=== PATIENT | female | born 2005 | race Caucasian/White ===

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

== ENCOUNTER → 2023-10-18 13:20 | Outpatient (BNVA) | payer MEDICAID, SELFPAY | PROVIDERS: Family Provider Nurse Practitioner Family; PCP Nurse Practitioner Family; Visit Provider Nurse Practitioner Women's Health | DX: N92.6 Irregular menstruation, unspecified (principal); Z34.90 Encounter for supervision of normal pregnancy, unspecified, unspecified trimester | CPT/HCPCS: 81025; 84702; 86850; 86900 ==

== ENCOUNTER → 2023-11-06 12:02 | Outpatient (BNVA) | payer MEDICAID, SELFPAY | PROVIDERS: Family Provider Nurse Practitioner Family; PCP Nurse Practitioner Family; Visit Provider Nurse Practitioner Women's Health | DX: Z36.87 Encounter for antenatal screening for uncertain dates (principal) | CPT/HCPCS: 76801 ==

== ENCOUNTER → 2023-11-13 07:58 | Outpatient (BNVA) | payer MEDICAID, SELFPAY | PROVIDERS: Family Provider Nurse Practitioner Family; PCP Nurse Practitioner Family; Visit Provider Nurse Practitioner Women's Health | DX: Z34.90 Encounter for supervision of normal pregnancy, unspecified, unspecified trimester | CPT/HCPCS: 84315; 87086 ==

== ENCOUNTER → 2023-11-20 08:01 | Outpatient (BNVA) | payer MEDICAID, SELFPAY | PROVIDERS: Family Provider Nurse Practitioner Family; PCP Nurse Practitioner Family; Visit Provider Nurse Practitioner Women's Health | DX: Z34.90 Encounter for supervision of normal pregnancy, unspecified, unspecified trimester (principal) | CPT/HCPCS: 85025; 86592; 86762; 86803; 87340; 87806 ==

== ENCOUNTER → 2023-12-09 07:56 | Outpatient (BNVA) | payer MEDICAID, SELFPAY | PROVIDERS: Family Provider Nurse Practitioner Family; PCP Nurse Practitioner Family; Visit Provider Obstetrics & Gynecology | DX: Z34.01 Encounter for supervision of normal first pregnancy, first trimester (principal) | CPT/HCPCS: 84315; 87491; 87591 ==

== ENCOUNTER → 2023-12-31 07:47 | Outpatient (BNVA) | payer BC, MEDICAID, SELFPAY | PROVIDERS: Family Provider Nurse Practitioner Family; PCP Nurse Practitioner Family; Visit Provider Nurse Practitioner Women's Health | DX: Z34.90 Encounter for supervision of normal pregnancy, unspecified, unspecified trimester | CPT/HCPCS: 82105; 84315 ==

== ENCOUNTER → 2024-01-27 14:42 | Outpatient (BNVA) | payer BC, MEDICAID, SELFPAY | PROVIDERS: Family Provider Nurse Practitioner Family; PCP Nurse Practitioner Family; Visit Provider Obstetrics & Gynecology | DX: Z36.2 Encounter for other antenatal screening follow-up (principal); Z3A.20 20 weeks gestation of pregnancy | CPT/HCPCS: 76805 ==

== ENCOUNTER → 2024-02-24 15:35 | Outpatient (BNVA) | payer BC, MEDICAID, SELFPAY | PROVIDERS: Family Provider Nurse Practitioner Family; PCP Nurse Practitioner Family; Visit Provider Obstetrics & Gynecology | DX: Z36.2 Encounter for other antenatal screening follow-up (principal); Z3A.24 24 weeks gestation of pregnancy | CPT/HCPCS: 76816 ==

== ENCOUNTER → 2024-02-28 07:54 | Outpatient (BNVA) | payer BC, MEDICAID, SELFPAY | PROVIDERS: Family Provider Nurse Practitioner Family; PCP Nurse Practitioner Family; Visit Provider Nurse Practitioner Women's Health | DX: O98.812 Other maternal infectious and parasitic diseases complicating pregnancy, second trimester (principal); A74.9 Chlamydial infection, unspecified | CPT/HCPCS: 82950; 84315; 87491; 87591 ==

== ENCOUNTER → 2024-03-25 13:12 | Outpatient (BNVA) | payer BC, MEDICAID, SELFPAY | PROVIDERS: Family Provider Nurse Practitioner Family; PCP Nurse Practitioner Family; Visit Provider Nurse Practitioner Women's Health | DX: Z34.90 Encounter for supervision of normal pregnancy, unspecified, unspecified trimester (principal); Z34.02 Encounter for supervision of normal first pregnancy, second trimester | CPT/HCPCS: 84315; 85025 ==

== ENCOUNTER 2024-04-16 11:26 | Outpatient (CLI) | payer BC, MEDICAID, SELFPAY ==
[2024-04-16] VITALS (8 sets, daily range): BP systolic 98–109; BP diastolic 54–72; PULSE 61–83; O2SAT 98; BMI 24.2
== END 2024-04-16 13:05 | disposition home or self-care (01) ==
LOC: OPOB 11:27 → OBGYN 11:28
PROVIDERS: Family Provider Nurse Practitioner Family; PCP Nurse Practitioner Family; Visit Provider Obstetrics & Gynecology
DX: O36.8190 Decreased fetal movements, unspecified trimester, not applicable or unspecified (principal); Z3A.00 Weeks of gestation of pregnancy not specified
CPT/HCPCS: 59025; 99211

== ENCOUNTER 2024-05-18 15:35 | Outpatient (CLI) | payer BC, MEDICAID, SELFPAY ==
[2024-05-18 15:35] VITALS: BMI 25.2
[2024-05-18 15:51] VITALS: BP 119/70; PULSE 70
[2024-05-18 16:11] VITALS: BP 109/65; PULSE 72
[2024-05-18 16:32] VITALS: BP 114/70; PULSE 75
== END 2024-05-18 16:55 | disposition home or self-care (01) ==
LOC: OPOB 15:40 → OBGYN 15:41
PROVIDERS: Absent Provider Obstetrics & Gynecology; Family Provider Nurse Practitioner Family; PCP Nurse Practitioner Family; Visit Provider Obstetrics & Gynecology
DX: O26.899 Other specified pregnancy related conditions, unspecified trimester (principal); Z3A.00 Weeks of gestation of pregnancy not specified
CPT/HCPCS: 59025; 84315; 87081; 99211

== ENCOUNTER 2024-05-27 01:01 | Inpatient (IN) | payer BC, MEDICAID, SELFPAY ==
[2024-05-26 23:57] VITALS: BMI 25.9
[2024-05-27] VITALS (86 sets, daily range): BP systolic 92–137; BP diastolic 50–95; PULSE 55–123; RESP 14–16; TEMP 36.2–36.8; O2SAT 92–100
[2024-05-27 01:14] LABS: Basophils % 0.2 %; Eosinophils % 0.2 %; Hematocrit 41.7 % (36-47); Lymphocytes # 2.4 10^3/uL (1.5-6.5); Lymphocytes % 18.1 %; Mean Corpuscular HGB Conc 33.6 g/dL (30-55); Mean Corpuscular Hemoglobin 29.9 pg (27-33); Mean Corpuscular Volume 88.9 fl (85-98); Mean Platelet Volume 10.3 fL (7.4-10.4); Monocytes # 0.9 10^3/uL (0.2-0.9); Monocytes % 7.2 %; Neutrophils # 9.55 10^3/uL (1.8-8.0); Neutrophils % 73.8 %; Nucleated Red Blood Cells % 0 %; Platelet Count 304 10^3/cmm (157-399); Red Blood Count 4.69 10^6/uL (3.85-5.65); Red Cell Distribution Width 13.3 % (12.1-15.1); White Blood Count 12.97 10^3/uL (4.5-13.0)
--- NOTE | 2024-05-27 01:45 | PM.OBGYHP ---
Providers/Chief Complaint Admitting Physician: Caleb Norman MD Primary ATHLETIC TURF WORKER: Max Rouse MD Primary Care Provider: PAWAN Roman Chief Complaint: bleeding, back pain, possible contractions HPI ATHLETIC TURF WORKER History of Present Illness Manish Hummel is a 18 year old female G1 EDC June 12, 2024 At 37 w 5 d No complications Presented c/o painful uterine contractions No bleeding or fluid leakage + active movements Present Details : 1 Para: 0 Labs Rubella: Immune RPR: Negative GBS: Negative Medications/Allergies Home Medications Medication Instructions Recorded Confirmed Last Taken Type vitamin 1 tab PO DAILY 05/27/24 05/27/24 1 Day Ago History no.76-iron,carbonyl 29 mg ~05/26/24 iron-folic acid 1 mg tablet Allergies Allergy/AdvReac Type Severity Reaction Status Date / Time No Known Allergies Allergy Verified 05/27/24 02:17 PFSH ATHLETIC TURF WORKER PFSH: Medical History No pertinent past medical history neghx: htn,dm,thyroid,dvt/pe PCP: None Surgical History No pertinent past surgical history Family History Grandmother Diabetes Stroke Thyroid disease Mother Hypertension Denies family history of Colon cancer Ovarian cancer Prostate cancer Heart disease Hyperlipidemia Breast cancer Uterine cancer Social History Smoking and tobacco/nicotine status: former use of tobacco/nicotine History History History 1 Term 0 Miscarriages/Ectopic Living Children Care ISREAL Calculator Estimated Delivery Date Method Current WG Current Estimate 06/12/24 Ultrasound #1 37w 6d Other Estimates 05/31/24 LMP (Certain) 39w 4d Specific Issues/Plans SMOKER -- quit smoking CHLAMYDIA- second trimester; treated; chelsea 24 wks Vitals/I&O/Wt Last Vital Signs Temp 97.6 F 05/28/24 00:00 Pulse 79 05/28/24 00:00 Resp 14 05/28/24 00:00 BP 104/65 05/28/24 00:00 Pulse Ox 96 05/28/24 00:00 O2 Del Method Room Air 05/28/24 00:00 05/27/24 05/27/24 05/28/24 14:59 22:59 06:59 Intake Total 1100 / 1100 212.917 / 1312.917 Balance 1100 / 1100 212.917 / 1312.917 Weight last 48 hrs Weight 142 lb Physical Exam Narrative: Weight 142 lbs; 5?2? VS normal General in moderate discomfort from uterine contractions Awake, alert Lungs: clear Cor: RRR Fundal height 36 cm Cervix 4 cm / 75 / -2 / cephalic Ext: no edema External monitor: regular uterine contractions heart tracing good variability, + accelerations Urinary Catheter Management: Barrett: Cath Placed During This Visit: yes, but has since been removed by the nurse Reason for Continuing Indwelling Catheter: Other Urinary Catheter Date of Insertion: 05/27/24 Urinary Catheter Time of Insertion: 06:10 Date Urinary Catheter Removed: 05/27/24 Time Urinary Catheter Discontinued: 13:56 Data 05/28/24 03:00 Results Labs OB ([facility]): Obstetrics US 02/24/24 Blood Type O Positive 05/27/24 Antibody Screen Negative 05/27/24 Hct 31.1 % (36-47) L 05/28/24 Hgb 10.50 g/dL (12.4-14.8) L 05/28/24 Rho(D) Type Rh positive 05/27/24 Plt Count 217 10^3/cmm (157-399) 05/28/24 Hep Bs Antigen Non-reactive (Nonreactive) 11/20/23 Hepatitis C Antibody Non-reactive (Nonreactive) 11/20/23 Rubella IgG Antibody 71.9 IU/mL (0.0-10.0) H 11/20/23 RPR Nonreactive (Nonreactive) 11/20/23 HIV 1&2 Ab & HIV 1 Ag Non-reactive (Non-Reactiv) 11/20/23 C.trachomatis RNA (TMA) Not detected (NOT DETECTED) 02/28/24 N.gonorrhoeae RNA (TMA) Not detected (NOT DETECTED) 02/28/24 T. vaginalis Amp RNA Not detected (NOT DETECTED) 02/28/24 Chlamydia/GC Comment See note 02/28/24 Cystic Fibrosis Screen Negative 12/09/23 Glucose 1 Hr 50 gm 95 mg/dL (85-140) 02/28/24 Ser , Semi-Qnt 29659.00 mIU/mL 10/18/23 HCG, Qual Positive (Negative) H 10/18/23 Urine Opiates Screen Negative ng/mL (Negative) 05/27/24 Ur Barbiturates Screen Negative ng/mL (Negative) 05/27/24 Ur Phencyclidine Scrn Negative ng/mL (Negative) 05/27/24 Ur Amphetamines Screen Negative ng/mL (Negative) 05/27/24 U Benzodiazepines Scrn Negative ng/mL (Negative) 05/27/24 Urine Cocaine Screen Negative ng/mL (Negative) 05/27/24 U Marijuana (THC) Screen Negative ng/mL (Negative) 05/27/24 Micro Urine Specimen 11/13/23 A&P Assessment and plan (1) Supervision of normal first : 37 w 5 d Fetus reassuring Active labor Admit Expectant management Qualifiers: Trimester: second trimester Qualified Code(s): Z34.02 - Encounter for supervision of normal first , second trimester Attestations Medical Necessity Statement*: patient at 37 w 5 d, in active labor Coding Level of Care Code Acute Code for Chg Fwd Diagnoses Encounter for supervision of normal first in second trimester Z34.02 Trimester: second trimester Time Spent (min) 60
[2024-05-27 02:23] LABS: Amphetamines Screen Urine Negative (Negative); Barbiturates Screen Urine Negative (Negative); Benzodiazepines Screen Urine Negative (Negative); Cocaine Screen Urine Negative (Negative); Opiate Screen Urine Negative (Negative); PCP Screen Urine Negative (Negative); THC Screen Urine Negative (Negative)
--- NOTE | 2024-05-27 02:50 | PM.OBGYPN ---
MEDICAL TECHNICIAN ASSISTANT Subjective Subjective: Interval history: DELIVERY NOTE , vigorous Normal placenta and cord Cord blood obtained Second-degree perineal laceration repaired EBL: 300 cc No complications Labor: Station: -1 Amniotic Membrane Status: Bulging Monitor Mode: External Contraction Pattern: Irregular Vitals/I&O/Wt Last Vital Signs Temp 97.6 F 05/28/24 00:00 Pulse 79 05/28/24 00:00 Resp 14 05/28/24 00:00 BP 104/65 05/28/24 00:00 Pulse Ox 96 05/28/24 00:00 O2 Del Method Room Air 05/28/24 00:00 05/27/24 05/28/24 05/28/24 22:59 06:59 14:59 Intake Total 212.917 / 1312.917 Balance 212.917 / 1312.917 Weight last 48 hrs Weight 142 lb Physical Exam Urinary Catheter Management: Barrett: Cath Placed During This Visit: yes, but has since been removed by the nurse Reason for Continuing Indwelling Catheter: Other Urinary Catheter Date of Insertion: 05/27/24 Urinary Catheter Time of Insertion: 06:10 Date Urinary Catheter Removed: 05/27/24 Time Urinary Catheter Discontinued: 13:56 Data 05/28/24 03:00 A&P Assessment and plan (1) Vaginal delivery: Attestations Medical Necessity Statement*: patient s/p vaginal delivery Coding Level of Care Code Acute Code for Chg Fwd Diagnoses Vaginal delivery O80 Time Spent (min) 60
[2024-05-27] MEDS: lactated ringers 1,000 ML 999 ML IV ×2 (04:00→04:56)
[2024-05-27] MEDS: fentaNYL 50 mcg/mL INJ 2mL IVP (04:11)
[2024-05-27] MEDS: ROPivacaine syringe 100 MG/50 ML SYRINGE 10 MG EPIDURAL ×3 (05:18→14:32)
--- NOTE | 2024-05-27 05:23 | P.ANESASSM_ITS ---
Pre-Anesthetic Assessment Height/Weight: Height 1.57 m Weight 64.41 kg Temp Pulse Resp BP Pulse Ox O2 Del Method 97.2 F L 65 16 115/56 100 Room Air 05/27/24 01:14 05/27/24 05:21 05/27/24 04:11 05/27/24 05:19 05/27/24 05:21 05/27/24 01:11 Epidural Familial anesthetic complications: None Was Beta Rosa M taken within 24 hours: N/A Was Clonidine taken within 24 hours: N/A Last intake: 1900 solids Social No alcohol and No tobacco Exam alert, oriented x 3, clear to auscultation bilaterally and regular rate & rhythm Airway Submandibular: within normal limits Cervical ROM: within normal limits Mallampati: Class II Dentition: full History/ROS No significant history except as noted and No significant complaints Pulmonary None reported CV/HEM None reported None reported Hepatic None reported GI None reported Metabolic None reported Musc/skel None reported Neuropsych None reported Anesthetic Plan ASA status: 2 Anesthesia: Anesthesia Evaluation, General and Regional (specify below) (Epidural) Medications/Allergies Home Medications Medication Instructions Recorded Confirmed Last Taken Type vitamin 1 tab PO DAILY 05/27/24 05/27/24 1 Day Ago History no.76-iron,carbonyl 29 mg ~05/26/24 iron-folic acid 1 mg tablet Allergies Allergy/AdvReac Type Severity Reaction Status Date / Time No Known Allergies Allergy Verified 05/27/24 02:17 Current Medications Generic Name Dose Route Start Last Admin Trade Name Freq PRN Reason Stop Dose Admin Fentanyl 25 - 100 mcg 05/27/24 01:09 05/27/24 04:11 Fentanyl 50 Mcg/Ml Inj 2ml IVP 25 mcg Q1H PRN Administration SEVERE PAIN Lactated Ringer's 1,000 mls @ 999 mls/hr 05/27/24 03:46 05/27/24 04:00 Lactated Ringers IV 999 mls/hr .Q1H1M PRN Administration See label comments PFSH Anesthesia Medical History No pertinent past medical history neghx: htn,dm,thyroid,dvt/pe PCP: None Surgical History No pertinent past surgical history Family History Grandmother Diabetes Stroke Thyroid disease Mother Hypertension Denies family history of Colon cancer Ovarian cancer Prostate cancer Heart disease Hyperlipidemia Breast cancer Uterine cancer Social History Smoking and tobacco/nicotine status: former use of tobacco/nicotine Female Reproductive History : 1 Data Anesthesia 05/27/24 00:50 Short CBC 05/27/24 Range/Units 00:50 WBC 12.97 (4.5-13.0) 10^3/uL Hgb 14.00 (12.4-14.8) g/dL Hct 41.7 (36-47) % MCV 88.9 (85-98) fl Plt Count 304 (157-399) 10^3/cmm Neut % (Auto) 73.8 % Neut # (Auto) 9.55 H (1.8-8.0) 10^3/uL Blood Bank 05/27/24 00:50 Blood Type O Positive Rho(D) Type Rh positive Antibody Screen Negative Cardiac Studies: 2 No Data to Display
--- NOTE | 2024-05-27 05:25 | ANES.PROC ---
Anesthesia Procedures Procedure/Date: 05/27/24 Epidural: Time Out Performed: Yes Consents Signed: Procedure Consent and NPO Consent Consent: requested by attending/covering physician, from patient, risks and benefits reviewed and patient agrees to proceed Lumbar Level: L3-L4 Epidural position: sitting Epidural procedure: sterile prep of area (betadine), 1% lidocaine to numb the area (3 mLs), neg for paresthesia, test dose given, 1.5% xylocaine 1:200k epi (3 mL/2 mL), 0.2% Ropivacaine bolus ml (3 mLs), placed PCEA, no systemic response, sterile dressing applied, L.U.D. no apparent complications and 0.2% Ropiavacaine @ mls/hr (10 mLs/hr) Additional Comments: MANJULA 5cm, catheter threaded to 11cm. No heme or CSF noted on aspiration. Patient tolerated well.
--- NOTE | 2024-05-27 05:50 | P.PN_ITS ---
FITNESS MANAGER Subjective 2 Subjective: Interval history: Fetus reassuring Cervix: 7 cm / -1 Labor: Station: -1 Amniotic Membrane Status: Bulging Monitor Mode: External Contraction Pattern: Irregular Vitals/I&O/Wt Last Vital Signs Temp 97.6 F 05/28/24 00:00 Pulse 79 05/28/24 00:00 Resp 14 05/28/24 00:00 BP 104/65 05/28/24 00:00 Pulse Ox 96 05/28/24 00:00 O2 Del Method Room Air 05/28/24 00:00 05/27/24 05/28/24 05/28/24 22:59 06:59 14:59 Intake Total 212.917 / 1312.917 Balance 212.917 / 1312.917 Weight last 48 hrs Weight 142 lb Physical Exam 2 Urinary Catheter Management: Barrett: Cath Placed During This Visit: yes, but has since been removed by the nurse Reason for Continuing Indwelling Catheter: Other Urinary Catheter Date of Insertion: 05/27/24 Urinary Catheter Time of Insertion: 06:10 Date Urinary Catheter Removed: 05/27/24 Time Urinary Catheter Discontinued: 13:56 Data 05/28/24 03:00 A&P Assessment and plan (1) Active labor at term: Attestations 2 Medical Necessity Statement*: patient at 37 w 5 d, in active labor Coding Level of Care Code Acute Code for Chg Fwd Diagnoses Active labor at term Time Spent (min) 30
[2024-05-27] MEDS: dextrose 5%-lactated ringers 1,000 ML 125 ML IV ×2 (06:22→14:25)
--- NOTE | 2024-05-27 14:55 | PM.DELIVERY ---
Delivery Note: Date of delivery: May 27, 2024 Pre-delivery diagnoses: 37 w 5 d active labor Post-delivery diagnoses: 37 w 5 d active labor vaginal delivery repair of second-degree perineal laceration Procedure: vaginal delivery repair of second-degree perineal laceration Op report anesthesia: Epidural Delivering Physician: Caleb Norman MD Estimated blood loss (mL): 300 Findings: , vigorous infant Normal placenta and cord Cord blood obtained Second-degree perineal laceration repaired EBL: 300 cc No complications Pre-Delivery Course: normal labor course Delivery: vaginal Post-Delivery Status: good History History History 1 Term 0 Miscarriages/Ectopic Living Children A&P Assessment and plan (1) Vaginal delivery: Coding Level of Care Code Acute Code for Chg Fwd Diagnoses Vaginal delivery O80 Time Spent (min) 60
--- NOTE | 2024-05-27 15:34 | XRR_ITS ---
PROCEDURE INFORMATION: Exam: XR Abdomen Exam date and time: 05/27/2024 3:39 PM Age: 18 years old Clinical indication: Other: Looking for radiopaque suture in vagina; Prior surgery; Surgery date: Post-operative (0-2 days); Surgery type: ; Additional info: Lost suture, possible in vagina TECHNIQUE: Imaging protocol: Radiologic exam of the abdomen. Views: Frontal supine view of the abdomen. 1 View. COMPARISON: No relevant prior studies available. FINDINGS: Tubes, catheters and devices: 6 mm metallic density overlies the L3 vertebral body. 8 mm metallic density overlies the L4 vertebral body. No definite evidence of radiopaque suture. Gastrointestinal tract: Nonobstructive bowel gas pattern. Moderate colonic stool. Bones/joints: Unremarkable. XR/XR KUB portable [id number] IMPRESSION: 1. Metallic densities overlying the lumbar spine as above. Correlate with physical exam findings to determine if these are external to the patient. 2. Moderate colonic stool may represent constipation.
--- NOTE | 2024-05-27 15:55 | P.PN_ITS ---
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 It was definitely my recollection that the used needle was placed on the delivery table after use and not in the patient. It was also asssured by my exam that the needle was not left in patient. X-ray obtained showed no needle seen in abdomen or perineum. Labor: Station: -1 Amniotic Membrane Status: Bulging Monitor Mode: External Contraction Pattern: Irregular Vitals/I&O/Wt Last Vital Signs Temp 97.6 F 05/28/24 00:00 Pulse 79 05/28/24 00:00 Resp 14 05/28/24 00:00 BP 104/65 05/28/24 00:00 Pulse Ox 96 05/28/24 00:00 O2 Del Method Room Air 05/28/24 00:00 05/27/24 05/28/24 05/28/24 22:59 06:59 14:59 Intake Total 212.917 / 1312.917 Balance 212.917 / 1312.917 Weight last 48 hrs Weight 142 lb Physical Exam 2 Urinary Catheter Management: Barrett: Cath Placed During This Visit: yes, but has since been removed by the nurse Reason for Continuing Indwelling Catheter: Other Urinary Catheter Date of Insertion: 05/27/24 Urinary Catheter Time of Insertion: 06:10 Date Urinary Catheter Removed: 05/27/24 Time Urinary Catheter Discontinued: 13:56 Data 05/28/24 03:00 A&P Assessment and plan (1) Vaginal delivery: Attestations 2 Medical Necessity Statement*: patient s/p vaginal delivery Coding Level of Care Code Acute Code for Chg Fwd Diagnoses Vaginal delivery O80 Time Spent (min) 60
[2024-05-27] MEDS: HYDROcodone-acetaminophen 5-325 mg Tablet PO (17:08)
[2024-05-27] MEDS: docusate sodium 100 mg Capsule PO (17:09)
[2024-05-27] MEDS: ibuprofen 800 mg tablet PO (20:53)
[2024-05-28] VITALS: BP 104/65; PULSE 79; RESP 14; TEMP 36.4; O2SAT 96
[2024-05-28 03:06] LABS: Hematocrit 31.1 % (36-47); Mean Corpuscular HGB Conc 33.8 g/dL (30-55); Mean Corpuscular Hemoglobin 30.3 pg (27-33); Mean Corpuscular Volume 89.6 fl (85-98); Mean Platelet Volume 9.9 fL (7.4-10.4); Platelet Count 217 10^3/cmm (157-399); Red Blood Count 3.47 10^6/uL (3.85-5.65); Red Cell Distribution Width 13.5 % (12.1-15.1); White Blood Count 15.83 10^3/uL (4.5-13.0)
[2024-05-28 06:00] VITALS: BP 101/61; PULSE 81; RESP 12; TEMP 36.9; O2SAT 97
[2024-05-28 09:50] VITALS: BP 107/84; PULSE 83; RESP 17; TEMP 36.7
[2024-05-28] MEDS: docusate sodium 100 mg Capsule PO (10:12)
[2024-05-28] MEDS: ibuprofen 800 mg tablet PO ×2 (10:12→14:09)
[2024-05-28] MEDS: PRENATAL VIT NO.130/IRON/FOLIC 1 EACH TABLET PO (10:12)
--- NOTE | 2024-05-28 15:05 | PM.OBGYDC ---
Discharge Providers RAW CHEESE WORKER Date of Admission: 05/27/24 01:01 Date of Discharge: 05/28/24 Attending Provider at Admission: Caleb Norman MD Attending Provider at Discharge: Caleb Norman MD Consults: none Primary RAW CHEESE WORKER: Max Rouse MD Primary Care Provider: PAWAN Roman Diagnoses at Discharge Discharge Diagnosis (1) Vaginal delivery: Details from hospital stay: 18 y.o. G1 at 37 w 5 d no complications presented c/o painful uterine contractions patient was admitted at 4 cm dilatation She progressed to complete dilatation fetus was reassuring throughout patient delivered vaginally with repair of second-degree perineal laceration patient did well and was discharged to home on the first day Status: Inactive Reason for Visit Reason for Visit: bleeding, back pain, possible contractions Brief History: 18 y.o. G1 at 37 w 5 d no complications presented c/o painful uterine contractions Hospital Course Hospital Course 18 y.o. G1 at 37 w 5 d no complications presented c/o painful uterine contractions patient was admitted at 4 cm dilatation She progressed to complete dilatation fetus was reassuring throughout patient delivered vaginally with repair of second-degree perineal laceration patient did well and was discharged to home on the first day Information Peripartum Data: Delivery Method: Vaginal Laceration description: Perineal - 2nd Degree Episiotomy description: None complications: none Physical Exam Narrative: afebrile, VS normal comfortable, awake, alert Abd: soft, nontender. fundus firm Ext: no edema; nontender Urinary Catheter Management: Barrett: Cath Placed During This Visit: yes, but has since been removed by the nurse Reason for Continuing Indwelling Catheter: Other Urinary Catheter Date of Insertion: 05/27/24 Urinary Catheter Time of Insertion: 06:10 Date Urinary Catheter Removed: 05/27/24 Time Urinary Catheter Discontinued: 13:56 History History History 1 Term 0 Miscarriages/Ectopic Living Children Discharge Data Studies Completed and Pending Completed Studies During Hospitalization Category Date Time Status XR KUB portable [id number] Stat Exams 05/27/24 15:34 Completed Radiology Impressions KUB X-Ray 05/27/24 15:34 IMPRESSION: 1. Metallic densities overlying the lumbar spine as above. Correlate with physical exam findings to determine if these are external to the patient. 2. Moderate colonic stool may represent constipation. Laboratory Results WBC 15.83 10^3/uL (4.5-13.0) H 05/28/24 03:00 RBC 3.47 10^6/uL (3.85-5.65) L 05/28/24 03:00 Hgb 10.50 g/dL (12.4-14.8) L 05/28/24 03:00 Hct 31.1 % (36-47) L 05/28/24 03:00 MCV 89.6 fl (85-98) 05/28/24 03:00 MCH 30.3 pg (27-33) 05/28/24 03:00 MCHC 33.8 g/dL (30-55) 05/28/24 03:00 RDW 13.5 % (12.1-15.1) 05/28/24 03:00 Plt Count 217 10^3/cmm (157-399) 05/28/24 03:00 MPV 9.9 fL (7.4-10.4) 05/28/24 03:00 Neut % (Auto) 73.8 % 05/27/24 00:50 Lymph % (Auto) 18.1 % 05/27/24 00:50 [place] % (Auto) 7.2 % 05/27/24 00:50 Eos % (Auto) 0.2 % 05/27/24 00:50 Baso % (Auto) 0.2 % 05/27/24 00:50 Neut # (Auto) 9.55 10^3/uL (1.8-8.0) H 05/27/24 00:50 Lymph # (Auto) 2.4 10^3/uL (1.5-6.5) 05/27/24 00:50 [place] # (Auto) 0.9 10^3/uL (0.2-0.9) 05/27/24 00:50 Eos # (Auto) 0.0 10^3/uL (0.0-0.8) 05/27/24 00:50 Baso # (Auto) 0.0 10^3/uL (0.0-0.1) 05/27/24 00:50 Nucleated RBC % (auto) 0 % 05/27/24 00:50 Nucleated RBCs # 0.0 /100WBC 05/27/24 00:50 Urine Opiates Screen Negative ng/mL (Negative) 05/27/24 02:10 Ur Barbiturates Screen Negative ng/mL (Negative) 05/27/24 02:10 Ur Phencyclidine Scrn Negative ng/mL (Negative) 05/27/24 02:10 Ur Amphetamines Screen Negative ng/mL (Negative) 05/27/24 02:10 U Benzodiazepines Scrn Negative ng/mL (Negative) 05/27/24 02:10 Urine Cocaine Screen Negative ng/mL (Negative) 05/27/24 02:10 U Marijuana (THC) Screen Negative ng/mL (Negative) 05/27/24 02:10 Blood Type O Positive 05/27/24 00:50 Rho(D) Type Rh positive 05/27/24 00:50 Antibody Screen Negative 05/27/24 00:50 Procedures Performed vaginal delivery repair of second-degree perineal laceration Vitals Last Vital Signs Temp 98.4 F 05/28/24 17:30 Pulse 80 05/28/24 17:30 Resp 17 05/28/24 17:30 BP 105/67 05/28/24 17:30 Pulse Ox 98 05/28/24 17:30 O2 Del Method Room Air 05/28/24 17:00 Results Labs OB ([facility]): Obstetrics US 02/24/24 Blood Type O Positive 05/27/24 Antibody Screen Negative 05/27/24 Hct 38.0 % (36-47) 06/04/24 Hgb 12.60 g/dL (12.4-14.8) 06/04/24 Rho(D) Type Rh positive 05/27/24 Plt Count 455 10^3/cmm (157-399) H 06/04/24 Hep Bs Antigen Non-reactive (Nonreactive) 11/20/23 Hepatitis C Antibody Non-reactive (Nonreactive) 11/20/23 Rubella IgG Antibody 71.9 IU/mL (0.0-10.0) H 11/20/23 RPR Nonreactive (Nonreactive) 11/20/23 HIV 1&2 Ab & HIV 1 Ag Non-reactive (Non-Reactiv) 11/20/23 C.trachomatis RNA (TMA) Not detected (NOT DETECTED) 02/28/24 N.gonorrhoeae RNA (TMA) Not detected (NOT DETECTED) 02/28/24 T. vaginalis Amp RNA Not detected (NOT DETECTED) 02/28/24 Chlamydia/GC Comment See note 02/28/24 Cystic Fibrosis Screen Negative 12/09/23 Glucose 1 Hr 50 gm 95 mg/dL (85-140) 02/28/24 Ser , Semi-Qnt 83289.00 mIU/mL 10/18/23 HCG, Qual Positive (Negative) H 10/18/23 Urine Opiates Screen Negative ng/mL (Negative) 05/27/24 Ur Barbiturates Screen Negative ng/mL (Negative) 05/27/24 Ur Phencyclidine Scrn Negative ng/mL (Negative) 05/27/24 Ur Amphetamines Screen Negative ng/mL (Negative) 05/27/24 U Benzodiazepines Scrn Negative ng/mL (Negative) 05/27/24 Urine Cocaine Screen Negative ng/mL (Negative) 05/27/24 U Marijuana (THC) Screen Negative ng/mL (Negative) 05/27/24 Micro Urine Specimen 06/04/24 Discharge Plan Discharge Patient Disposition: Home Condition: Stable Prescriptions: No Action meloxicam 7.5 mg tablet 7.5 mg PO .Twice daily Qty: 14 0RF Discharge Orders: Discharge Order (Routine); Ordered 05/28/24 Ordered By: Caleb Norman Referrals: Caleb Norman MD [Physician] - 06/18/24 1:00 pm Discharge Diet: Usual diet Discharge Activity: Increase activity as tolerated Patient Instructions: Depression (DC), Opioid Safety (DC), Preeclampsia and Eclampsia After Delivery (GEN), Hemorrhage (DC), OB Discharge Report, OB Food/Drug Interaction Guide, Opioid Safety, OB Home Care, OB Vaginal Deliveries - [facility], Abnormal Bleeding Discharge Attestations RAW CHEESE WORKER Time Spent in Discharge Care*: less than 30 min Coding Level of Care Code Acute Code for Chg Fwd Diagnoses Vaginal delivery O80 Time Spent (min) 20
--- NOTE | 2024-05-28 15:32 | ANE.PACU2 ---
Inpatient post-anesthesia follow up: Airway intact: Yes Vital signs: Temperature 98.4 F Pulse Rate 81 Respiratory Rate 12 Blood Pressure 101/61 Pulse Oximetry 97 Oxygen Delivery Me thod Room Air Oxygen Flow Rate Fraction of Inspir ed Oxygen Hydration adequate: Yes Nausea and vomiting: No Pain level: 1 Mental status: Baseline Epidural Start/End: Epidural Start Date: 05/27/24 Epidural Start Time: 05:00 Epidural End Date: 05/27/24 Epidural End Time: 15:57
[2024-05-28 17:00] VITALS: BP 105/67; PULSE 80; RESP 17; TEMP 36.9
[2024-05-28 17:30] VITALS: BP 105/67; PULSE 80; RESP 17; TEMP 36.9; O2SAT 98
== END 2024-05-28 17:30 | disposition home or self-care (01) | DRG 807 ==
LOC: OPOB 01:01 → OBGYN 01:01
PROVIDERS: Admitting Provider Obstetrics & Gynecology; Family Provider Nurse Practitioner Family; PCP Nurse Practitioner Family; Visit Provider Obstetrics & Gynecology
DX: O70.1 Second degree perineal laceration during delivery (principal); Z37.0 Single live birth; Z3A.37 37 weeks gestation of pregnancy; Z83.3 Family history of diabetes mellitus; Z82.3 Family history of stroke; Z82.49 Family history of ischemic heart disease and other diseases of the circulatory system; Z87.891 Personal history of nicotine dependence
CPT/HCPCS: 36415; 51702; 59025; 59409; 74018; 80306; 85025; 85027; 86850; 86900; 99211; J2795; J3010; J7120; J7121

== ENCOUNTER 2024-05-31 11:36 | Emergency (ER) | payer BC, MEDICAID, SELFPAY ==
[2024-05-31 11:49] VITALS: BP 107/73; PULSE 102; RESP 18; TEMP 36.9; O2SAT 98; BMI 23.7
--- NOTE | 2024-05-31 12:19 | XRR_ITS ---
PROCEDURE INFORMATION: Exam: XR Chest Exam date and time: 05/31/2024 12:37 PM Age: 18 years old Clinical indication: Fever TECHNIQUE: Imaging protocol: Radiologic exam of the chest. Views: 1 view. COMPARISON: CR XR KUB portable [id number] 05/27/2024 3:39 PM FINDINGS: Lungs: Unremarkable. No consolidation or mass. Pleural spaces: Unremarkable. No pleural effusion. No pneumothorax. Heart/Mediastinum: Unremarkable. No cardiomegaly. Bones/joints: Unremarkable. XR/XR chest 1V portable [id number] IMPRESSION: No acute findings.
--- NOTE | 2024-05-31 12:21 | ED_ITS ---
HPI - Fever 2 General: Chief Complaint: Fever Stated Complaint: just had a baby wed, running fever Time Seen by Provider: 05/31/24 11:51 Source: patient Mode of arrival: ambulatory Limitations: no limitations History of Present Illness: 18-year-old female states she gave vaginally last Saturday states over the last 2 days she has been running a fever up to 101 she is afebrile here states she has had some mild abdominal cramping denies any severe abdominal pain she denies cough she denies any vaginal discharge or odor. Denies vomiting or diarrhea Associated symptoms: Deny abdominal pain, chills, chest pain, diarrhea, dysuria, headache(s), nausea or vomiting Related Data Previous Rx's Medication Instructions Recorded cephalexin 500 mg capsule 500 mg PO TID 7 days #21 caps 05/31/24 Allergies Allergy/AdvReac Type Severity Reaction Status Date / Time No Known Allergies Allergy Verified 05/31/24 11:56 Review of Systems 2 Const: Denies: fever(s), chills, body aches or change in appetite Eyes: Denies: blurry vision or eye discomfort ENMT: Denies: throat pain or dental pain Card: Denies: chest pain Resp: Denies: dyspnea GI: Denies: abdominal pain, nausea, vomiting or diarrhea : Denies: dysuria Musc: Denies: neck pain or back pain Skin/Breast: Denies: rash Neuro: Denies: headache(s) Psych: Denies: depression Isaac/Lymph: Denies: easy bruising All/Imm: Denies: urticaria PFSH ED 2 PFSH: Medical History No pertinent past medical history neghx: htn,dm,thyroid,dvt/pe PCP: None Surgical History No pertinent past surgical history Family History Grandmother Diabetes Stroke Thyroid disease Mother Hypertension Denies family history of Colon cancer Ovarian cancer Prostate cancer Heart disease Hyperlipidemia Breast cancer Uterine cancer Social History Smoking and tobacco/nicotine status: former use of tobacco/nicotine Course 2 Vital Signs: Vital signs: Vital Signs Temperature 98.4 F 05/31/24 11:49 Pulse Rate 100 05/31/24 12:31 Respiratory Rate 18 05/31/24 11:49 Blood Pressure 107/73 05/31/24 11:49 Pulse Oximetry 98 05/31/24 12:31 Oxygen Delivery Me thod Room Air 05/31/24 11:49 MDM - Fever Medical Decision Making Patient presents here with fever she has had no vaginal discharge no signs of endometritis she does have a UTI we will place her on antibiotic she is follow- up with PCP return if worsening. Medical Records I reviewed the patient's medical records. Lab Data I reviewed the patient's lab results. 05/31/24 12:32 05/31/24 12:32 Radiology Impressions Chest X-Ray 05/31/24 12:19 IMPRESSION: No acute findings. Laboratory Results WBC 12.18 10^3/uL (4.5-13.0) 05/31/24 12:32 RBC 3.73 10^6/uL (3.85-5.65) L 05/31/24 12:32 Hgb 11.20 g/dL (12.4-14.8) L 05/31/24 12:32 Hct 34.5 % (36-47) L 05/31/24 12:32 MCV 92.5 fl (85-98) 05/31/24 12:32 MCH 30.0 pg (27-33) 05/31/24 12:32 MCHC 32.5 g/dL (30-55) 05/31/24 12:32 RDW 13.3 % (12.1-15.1) 05/31/24 12:32 Plt Count 296 10^3/cmm (157-399) 05/31/24 12:32 MPV 9.5 fL (7.4-10.4) 05/31/24 12:32 Neut % (Auto) 81.8 % 05/31/24 12:32 Lymph % (Auto) 9.0 % 05/31/24 12:32 [place] % (Auto) 7.1 % 05/31/24 12:32 Eos % (Auto) 1.4 % 05/31/24 12:32 Baso % (Auto) 0.1 % 05/31/24 12:32 Neut # (Auto) 9.96 10^3/uL (1.8-8.0) H 05/31/24 12:32 Lymph # (Auto) 1.1 10^3/uL (1.5-6.5) L 05/31/24 12:32 [place] # (Auto) 0.9 10^3/uL (0.2-0.9) 05/31/24 12:32 Eos # (Auto) 0.2 10^3/uL (0.0-0.8) 05/31/24 12:32 Baso # (Auto) 0.0 10^3/uL (0.0-0.1) 05/31/24 12:32 Nucleated RBC % (auto) 0 % 05/31/24 12:32 Nucleated RBCs # 0.0 /100WBC 05/31/24 12:32 Sodium 141 mmol/L (136-145) 05/31/24 12:32 Potassium 3.4 mmol/L (3.5-5.1) L 05/31/24 12:32 Chloride 106 mmol/L (98-107) 05/31/24 12:32 Carbon Dioxide 23 mmol/L (22-29) 05/31/24 12:32 Anion Gap 15.4 (5-19) 05/31/24 12:32 BUN 5 mg/dL (6-20) L 05/31/24 12:32 Creatinine 0.5 mg/dL (0.5-0.9) 05/31/24 12:32 GFR Calculation 157.3 mL/min (90-130) H 05/31/24 12:32 Glucose 77 mg/dL (65-115) 05/31/24 12:32 Calculated Osmolality 288 mOsm/kg (285-295) 05/31/24 12:32 Calcium 8.6 mg/dL (8.5-10.5) 05/31/24 12:32 Total Bilirubin 0.4 mg/dL (0.15-1.2) 05/31/24 12:32 AST 20 U/L (0-32) 05/31/24 12:32 ALT 18 U/L (0-33) 05/31/24 12:32 Alkaline Phosphatase 145 U/L (35-105) H 05/31/24 12:32 Total Protein 5.8 g/dL (6.6-8.7) L 05/31/24 12: Albumin 2.8 g/dL (3.5-5.2) L 05/31/24 12:32 Globulin 3.0 g/dL (1.3-4.6) 05/31/24 12:32 Urine Color Yellow (Yellow) 05/31/24 13:20 Urine Appearance Cloudy (CLEAR) A 05/31/24 13:20 Urine pH 7.0 (5-7) 05/31/24 13:20 Ur Specific [place] 1.009 (1.005-1.030) 05/31/24 13:20 Urine Protein Trace (Negative) A 05/31/24 13:20 Urine Glucose (UA) Negative (Normal) 05/31/24 13:20 Urine Ketones Negative (Negative) 05/31/24 13:20 Urine Blood 3+ (Negative) A 05/31/24 13:20 Urine Nitrate Negative (Negative) 05/31/24 13:20 Urine Bilirubin Negative (Negative) 05/31/24 13:20 Urine Urobilinogen 2.0 mg/dL (Negative) H 05/31/24 13:20 Ur Leukocyte Esterase 3+ (Negative) A 05/31/24 13:20 Urine RBC 21-50 /hpf (0-2) H 05/31/24 13:20 Urine WBC >100 /hpf (0-5) H 05/31/24 13:20 Ur Squamous Epith Cells 0-5 /hpf (0-5) 05/31/24 13:20 Amorphous Sediment Not Reportable 05/31/24 13:20 Urine Bacteria None seen /hpf (NONE) 05/31/24 13:20 Hyaline Casts 1.65 /lpf 05/31/24 13:20 Coronavirus (PCR) Negative (Negative) 05/31/24 12:26 Influenza A (PCR) Negative (Negative) 05/31/24 12: Influenza Type B (PCR) Negative (Negative) 05/31/24 12: RSV (PCR) Negative (Negative) 05/31/24 12:26 All radiology interpretation(s) finalized by discharge Discharge Plan Discharge Patient Disposition: Home Clinical Impression: Acute cystitis Condition: Stable Prescriptions: New cephalexin 500 mg capsule 500 mg PO TID 7 Days Qty: 21 0RF Discharge Orders: Discharge ED (Routine); Ordered 05/31/24 Ordered By: Tomasa Mata Referrals: Eli Cherry FNP-C [Primary Care Provider] - 4-7 days Discharge Diet: Advance as tolerated Discharge Activity: Resume usual activity Patient Instructions: Urinary Tract Infection in Women (ED) Coding Level of Care Code ED Personnel Clerks Supervisor for Sunni Dykes
[2024-05-31 12:31] VITALS: PULSE 100; O2SAT 98
[2024-05-31 13:11] LABS: Basophils % 0.1 %; Eosinophils # 0.2 10^3/uL (0.0-0.8); Eosinophils % 1.4 %; Hematocrit 34.5 % (36-47); Lymphocytes # 1.1 10^3/uL (1.5-6.5); Mean Corpuscular HGB Conc 32.5 g/dL (30-55); Mean Corpuscular Volume 92.5 fl (85-98); Mean Platelet Volume 9.5 fL (7.4-10.4); Monocytes # 0.9 10^3/uL (0.2-0.9); Monocytes % 7.1 %; Neutrophils # 9.96 10^3/uL (1.8-8.0); Neutrophils % 81.8 %; Nucleated Red Blood Cells % 0 %; Platelet Count 296 10^3/cmm (157-399); Red Blood Count 3.73 10^6/uL (3.85-5.65); Red Cell Distribution Width 13.3 % (12.1-15.1); White Blood Count 12.18 10^3/uL (4.5-13.0)
[2024-05-31 13:13] LABS: Covid PCR NEGATIVE (Negative); Influenza A NEGATIVE (Negative); Influenza B NEGATIVE (Negative); Respiratory Syncytial Virus Ce NEGATIVE (Negative)
[2024-05-31 13:34] LABS: Alanine Aminotransferase 18 U/L (0-33); Albumin Level 2.8 g/dL (3.5-5.2); Alkaline Phosphatase 145 U/L (35-105); Anion Gap 15.4 (5-19); Aspartate Amino Transferase 20 U/L (0-32); Blood Urea Nitrogen 5 mg/dL (6-20); Calcium 8.6 mg/dL (8.5-10.5); Carbon Dioxide 23 mmol/L (22-29); Chloride 106 mmol/L (98-107); Creatinine Clr Calc Pharmacy 151.8961; Glomerular Filtration Rate 157.3 mL/min (90-130); Glucose 77 mg/dL (65-115); Osmolality Calculated 288 mOsm/kg (285-295); Potassium 3.4 mmol/L (3.5-5.1); Sodium 141 mmol/L (136-145); Total Bilirubin 0.4 mg/dL (0.15-1.2); Total Protein 5.8 g/dL (6.6-8.7)
[2024-05-31 13:36] LABS: Bilirubin Urine Negative (Negative); Blood Urine 3+ (Negative); Glucose Urine UA Negative (Normal); Ketones Urine Negative (Negative); Leukocyte Esterase Urine 3+ (Negative); Nitrate Urine Negative (Negative); Protein Urine Trace (Negative); Specific Gravity, Urine 1.009 (1.005-1.030); Urine Appearance Cloudy (CLEAR); Urine Color Yellow (Yellow)
[2024-05-31 13:39] LABS: Add Urine Microscopic? YES; Bacteria Urine None Seen /hpf; Hyaline Casts Urine 1.65 /lpf; RBC Urine 21-50 /hpf (0-2); Squamous Epithelial Cell Urine 0-5 /hpf (0-5); WBC Urine >100 /hpf (0-5)
[2024-05-31 13:43] LABS: Add Urine Culture? Yes
[2024-05-31] MEDS: cefTRIAXone 1,000 MG in water for injection-sterile 2.1 ML 2.1 MG IM (14:29)
[2024-05-31] MEDS: HYDROcodone-acetaminophen 5-325 mg Tablet 1 TAB PO (14:29)
== END 2024-05-31 14:35 | disposition home or self-care (01) ==
PROVIDERS: Emergency Provider Emergency Medicine; Family Provider Nurse Practitioner Family; PCP Nurse Practitioner Family
DX: N30.00 Acute cystitis without hematuria (principal); Z11.52 Encounter for screening for COVID-19; Z87.891 Personal history of nicotine dependence
CPT/HCPCS: 0241U; 36415; 71045; 80053; 81001; 85025; 87086; 96372; 99284; J0696

== ENCOUNTER 2024-06-04 11:55 | Emergency (ER) | payer BC, MEDICAID, SELFPAY ==
[2024-06-04 12:05] VITALS: BP 115/80; PULSE 113; TEMP 37.3; O2SAT 96; BMI 23.6
[2024-06-04 12:47] LABS: Basophils % 0.3 %; Eosinophils # 0.1 10^3/uL (0.0-0.8); Eosinophils % 0.4 %; Lymphocytes # 1.7 10^3/uL (1.5-6.5); Lymphocytes % 11.5 %; Mean Corpuscular HGB Conc 33.2 g/dL (30-55); Mean Corpuscular Hemoglobin 30.1 pg (27-33); Mean Corpuscular Volume 90.9 fl (85-98); Mean Platelet Volume 8.5 fL (7.4-10.4); Monocytes % 6.8 %; Neutrophils # 11.48 10^3/uL (1.8-8.0); Neutrophils % 79.9 %; Nucleated Red Blood Cells % 0 %; Platelet Count 455 10^3/cmm (157-399); Red Blood Count 4.18 10^6/uL (3.85-5.65); White Blood Count 14.36 10^3/uL (4.5-13.0)
[2024-06-04 13:08] LABS: Alanine Aminotransferase 12 U/L (0-33); Albumin Level 3.5 g/dL (3.5-5.2); Alkaline Phosphatase 158 U/L (35-105); Anion Gap 14.7 (5-19); Aspartate Amino Transferase 14 U/L (0-32); Blood Urea Nitrogen 5 mg/dL (6-20); Calcium 9.7 mg/dL (8.5-10.5); Carbon Dioxide 25 mmol/L (22-29); Chloride 100 mmol/L (98-107); Creatinine Clr Calc Pharmacy 189.3559; Globulin 4.1 g/dL (1.3-4.6); Glomerular Filtration Rate 203.5 mL/min (90-130); Glucose 106 mg/dL (65-115); Osmolality Calculated 280 mOsm/kg (285-295); Potassium 3.7 mmol/L (3.5-5.1); Sodium 136 mmol/L (136-145); Total Bilirubin 0.5 mg/dL (0.15-1.2); Total Protein 7.6 g/dL (6.6-8.7)
--- NOTE | 2024-06-04 13:16 | US_ITS ---
WS: [id number] Pelvic ultrasound, transabdominal. HISTORY: 7 days , fever, suspect retained products of conception COMPARISON: None available. Uterus: 14.0 cm x 9.0 cm x 6.7 cm. Uterus is enlarged as expected for state. Endometrium: 0.9 cm. Small amount of fluid along the endometrial canal. There are no retained product s of conception or increased vascularity. Endocervical canal is closed. Right ovary: 4.3 cm x 2.5 cm x 3.7 cm. Normal size and vascularity, no cystic or solid masses. Left ovary: 4.1 cm x 2.5 cm x 1.6 cm. Normal size and vascularity, no cystic or solid masses. No free fluid in the cul-de-sac. US/US pelv w/transvag [id number] IMPRESSION: Normal endometrium for recent state. No retained products of concept ion or increased vascularity.
--- NOTE | 2024-06-04 13:16 | W.ED.FEVER ---
HPI - Fever General: Chief Complaint: Fever Stated Complaint: Fever Time Seen by Provider: 06/04/24 13:12 History of Present Illness: Presents to the ER with complaints of fever and low back pain for the past week. Patient gave on 05/28/2024 and she has had a fever off and on since leaving the hospital. Patient was seen a couple days ago and diagnosed with a possible urinary tract infection been put on antibiotics and has not had any relief. Patient denies any issues with the or the . This was her first . She does report some vaginal bleeding but nothing heavy. Related Data Previous Rx's Medication Instructions Recorded cephalexin 500 mg capsule 500 mg PO TID 7 days #21 caps 05/31/24 meloxicam 7.5 mg tablet 7.5 mg PO .Twice daily #14 tabs 06/04/24 Allergies Allergy/AdvReac Type Severity Reaction Status Date / Time No Known Allergies Allergy Verified 06/04/24 12:10 Review of Systems General: Reports: 10 or more systems reviewed and unremarkable except in HPI and below PFSH ED PFSH: Medical History Vaginal delivery Active labor at term Supervision of normal first No pertinent past medical history neghx: htn,dm,thyroid,dvt/pe PCP: None Surgical History No pertinent past surgical history Family History Grandmother Diabetes Stroke Thyroid disease Mother Hypertension Denies family history of Colon cancer Ovarian cancer Prostate cancer Heart disease Hyperlipidemia Breast cancer Uterine cancer Social History Smoking and tobacco/nicotine status: former use of tobacco/nicotine Physical Exam Const: COMMON NORMALS: no acute distress, average body habitus, patient oriented x3, no limitations, healthy appearing, alert and well nourished HENMT: COMMON NORMALS: normocephalic, atraumatic, hearing grossly normal bilaterally, external ears normal, Normal external nose present and moist oral mucous membranes HEAD & SCALP: normocephalic and atraumatic NOSE: Normal external nose present EXTERNAL EAR: Yes external ears normal Neck/C-Spine: COMMON NORMALS: no JVD Chest: COMMONS NORMALS: normal inspection of the chest and normal palpation of entire chest wall Resp: COMMON NORMALS: normal respiratory effort, No retractions, No use of accessory muscles and clear to auscultation bilaterally AUSCULTATION: clear to auscultation bilaterally Cardio: COMMON NORMALS: no JVD, regular rate, regular rhythm, S1 normal heart sound present, S2 normal heart sound present, No gallops present (Cardio), No clicks present (Cardio), No murmurs present (Cardio) and No rub (Cardio) RATE: regular rate RHYTHM: regular rhythm HEART SOUNDS: S1 normal heart sound present and S2 normal heart sound present Neuro: COMMON NORMALS: patient oriented x3 SENSORIUM/ORIENTATION: Yes alert Course Vital Signs: Vital signs: Vital Signs Temperature 99.1 F 06/04/24 12:05 Pulse Rate 98 06/04/24 14:04 Blood Pressure 128/79 06/04/24 14:04 Pulse Oximetry 93 06/04/24 14:04 Oxygen Delivery Me thod Room Air 06/04/24 14:04 MDM - Fever Medical Decision Making Lab work was essentially unremarkable, pelvic ultrasound was essentially negative for state, patient has a follow-up with Dr. Rouse for 6-week she was instructed to call him and see if he needs any further testing done otherwise we will treat her for pain medicine and have her finish up her antibiotics. Medical Records I reviewed the patient's medical records. Lab Data I reviewed the patient's lab results. 06/04/24 12:35 06/04/24 12:35 Radiology Impressions Pelvic/Transvag US 06/04/24 13:16 IMPRESSION: Normal endometrium for recent state. No retained products of conception or increased vascularity. Laboratory Results WBC 14.36 10^3/uL (4.5-13.0) H 06/04/24 12:35 RBC 4.18 10^6/uL (3.85-5.65) 06/04/24 12:35 Hgb 12.60 g/dL (12.4-14.8) 06/04/24 12:35 Hct 38.0 % (36-47) 06/04/24 12:35 MCV 90.9 fl (85-98) 06/04/24 12:35 MCH 30.1 pg (27-33) 06/04/24 12:35 MCHC 33.2 g/dL (30-55) 06/04/24 12:35 RDW 13.0 % (12.1-15.1) 06/04/24 12:35 Plt Count 455 10^3/cmm (157-399) H 06/04/24 12:35 MPV 8.5 fL (7.4-10.4) 06/04/24 12:35 Neut % (Auto) 79.9 % 06/04/24 12:35 Lymph % (Auto) 11.5 % 06/04/24 12:35 [place] % (Auto) 6.8 % 06/04/24 12:35 Eos % (Auto) 0.4 % 06/04/24 12:35 Baso % (Auto) 0.3 % 06/04/24 12:35 Neut # (Auto) 11.48 10^3/uL (1.8-8.0) H 06/04/24 12:35 Lymph # (Auto) 1.7 10^3/uL (1.5-6.5) 06/04/24 12:35 [place] # (Auto) 1.0 10^3/uL (0.2-0.9) H 06/04/24 12:35 Eos # (Auto) 0.1 10^3/uL (0.0-0.8) 06/04/24 12:35 Baso # (Auto) 0.0 10^3/uL (0.0-0.1) 06/04/24 12:35 Nucleated RBC % (auto) 0 % 06/04/24 12:35 Nucleated RBCs # 0.0 /100WBC 06/04/24 12:35 Sodium 136 mmol/L (136-145) 06/04/24 12:35 Potassium 3.7 mmol/L (3.5-5.1) 06/04/24 12:35 Chloride 100 mmol/L (98-107) 06/04/24 12:35 Carbon Dioxide 25 mmol/L (22-29) 06/04/24 12:35 Anion Gap 14.7 (5-19) 06/04/24 12:35 BUN 5 mg/dL (6-20) L 06/04/24 12:35 Creatinine 0.4 mg/dL (0.5-0.9) L 06/04/24 12:35 GFR Calculation 203.5 mL/min (90-130) H 06/04/24 12:35 Glucose 106 mg/dL (65-115) 06/04/24 12:35 Calculated Osmolality 280 mOsm/kg (285-295) L 06/04/24 12:35 Calcium 9.7 mg/dL (8.5-10.5) 06/04/24 12:35 Total Bilirubin 0.5 mg/dL (0.15-1.2) 06/04/24 12:35 AST 14 U/L (0-32) 06/04/24 12:35 ALT 12 U/L (0-33) 06/04/24 12:35 Alkaline Phosphatase 158 U/L (35-105) H 06/04/24 12:35 Total Protein 7.6 g/dL (6.6-8.7) 06/04/24 12:35 Albumin 3.5 g/dL (3.5-5.2) 06/04/24 12:35 Globulin 4.1 g/dL (1.3-4.6) 06/04/24 12:35 Urine Color Yellow (Yellow) 06/04/24 12:15 Urine Appearance Clear (CLEAR) 06/04/24 12:15 Urine pH 6.0 (5-7) 06/04/24 12:15 Ur Specific [place] 1.014 (1.005-1.030) 06/04/24 12:15 Urine Protein Negative (Negative) 06/04/24 12:15 Urine Glucose (UA) Negative (Normal) 06/04/24 12:15 Urine Ketones 4+ (Negative) 06/04/24 12:15 Urine Blood 2+ (Negative) A 06/04/24 12:15 Urine Nitrate Negative (Negative) 06/04/24 12:15 Urine Bilirubin Negative (Negative) 06/04/24 12:15 Urine Urobilinogen 1.0 mg/dL (Negative) 06/04/24 12:15 Ur Leukocyte Esterase 1+ (Negative) A 06/04/24 12:15 Urine RBC 0-2 /hpf (0-2) 06/04/24 12:15 Urine WBC 11-20 /hpf (0-5) H 06/04/24 12:15 Ur Squamous Epith Cells 0-5 /hpf (0-5) 06/04/24 12:15 Amorphous Sediment Not Reportable 06/04/24 12:15 Urine Bacteria None seen /hpf (NONE) 06/04/24 12:15 Hyaline Casts 1.65 /lpf 06/04/24 12:15 Coronavirus (PCR) Negative (Negative) 06/04/24 13:30 Influenza A (PCR) Negative (Negative) 06/04/24 13:30 Influenza Type B (PCR) Negative (Negative) 06/04/24 13:30 RSV (PCR) Negative (Negative) 06/04/24 13:30 All radiology interpretation(s) finalized by discharge Discharge Plan Discharge Patient Disposition: Home Clinical Impression: Fever of unknown origin Low back pain Qualifiers: Chronicity: unspecified Back pain laterality: unspecified Sciatica presence: without sciatica Qualified Code(s): M54.50 - Low back pain, unspecified Condition: Stable Prescriptions: New meloxicam 7.5 mg tablet 7.5 mg PO .Twice daily Qty: 14 0RF No Action cephalexin 500 mg capsule 500 mg PO TID 7 Days Qty: 21 0RF Discharge Orders: Discharge ED (Routine); Ordered 06/04/24 Ordered By: Joaquín Rodriguez Referrals: Eli Cherry FNP-C [Primary Care Provider] - 1 week Patient Instructions: Fever - Adult, Back Pain (ED) Activity Restrictions/Additional Instructions: Thank you for choosing [facility] for your healthcare needs today. Please realize that you were seen in the emergency department and that we are providing you with an emergency medical screening exam and this may not be a complete and all exclusive of all testing and/or medical workup we may need to determine your element or severity of your illness. It is very important that you follow-up as instructed with your primary care provider or specialist for the additional evaluation and to discuss your medical treatment plan. You may return to the emergency department should you have concerns or if your condition changes or worsens in any way. Coding Level of Care Code ED Corrosion Control Specialist for Sunni Dykes
[2024-06-04 13:21] LABS: Bilirubin Urine Negative (Negative); Blood Urine 2+ (Negative); Glucose Urine UA Negative (Normal); Ketones Urine 4+ (Negative); Leukocyte Esterase Urine 1+ (Negative); Nitrate Urine Negative (Negative); Protein Urine Negative (Negative); Specific Gravity, Urine 1.014 (1.005-1.030); Urine Appearance Clear (CLEAR); Urine Color Yellow (Yellow)
[2024-06-04 13:23] LABS: Add Urine Microscopic? YES; Bacteria Urine None Seen /hpf; Hyaline Casts Urine 1.65 /lpf; RBC Urine 0-2 /hpf (0-2); Squamous Epithelial Cell Urine 0-5 /hpf (0-5)
[2024-06-04] MEDS: ibuprofen 800 mg tablet PO (13:32)
[2024-06-04 13:41] LABS: Add Urine Culture? Yes
[2024-06-04 13:47] VITALS: BP 134/82; O2SAT 95
[2024-06-04 14:04] VITALS: BP 128/79; PULSE 98; O2SAT 93
[2024-06-04 14:17] LABS: Covid PCR NEGATIVE (Negative); Influenza A NEGATIVE (Negative); Influenza B NEGATIVE (Negative); Respiratory Syncytial Virus Ce NEGATIVE (Negative)
== END 2024-06-04 15:33 | disposition home or self-care (01) ==
PROVIDERS: Emergency Provider Emergency Medicine; PCP Nurse Practitioner Family
DX: R50.9 Fever, unspecified (principal); M54.50 Low back pain, unspecified; Z11.52 Encounter for screening for COVID-19; Z87.891 Personal history of nicotine dependence
CPT/HCPCS: 0241U; 36415; 76830; 76856; 80053; 81001; 85025; 87086; 99284

== ENCOUNTER → 2024-11-16 11:34 | Outpatient (BNVA) | payer BC, MEDICAID, SELFPAY | PROVIDERS: PCP Nurse Practitioner Family; Visit Provider Nurse Practitioner Family | DX: J02.9 Acute pharyngitis, unspecified (principal) | CPT/HCPCS: 87071; 87880 ==

== ENCOUNTER → 2025-04-12 11:15 | Outpatient (BNVA) | payer MEDICAID, SELFPAY | PROVIDERS: PCP Nurse Practitioner Family; Visit Provider Nurse Practitioner Women's Health | DX: Z30.017 Encounter for initial prescription of implantable subdermal contraceptive (principal) | CPT/HCPCS: 81025 ==